=== PATIENT | male | born 1955 | race Caucasian/White ===

== ENCOUNTER 2017-05-03 18:57 | Emergency (ER) | payer OTHER ==
[~2017-05-03] VITALS: Ht 193 cm; Wt 96.8 kg
[2017-05-03 19:01] VITALS: TEMP 36.8; Ht 193 cm; Wt 96.8 kg
[2017-05-03] MEDS ORDERED: XYLOCAINE 1%/SOD BICARB 20 ML VIAL INFIL STA (19:36)
[2017-05-03] MEDS ORDERED: BUPIVACAINE 0.5 % 5 MG/1 ML MPF 30ML VIAL INFIL STA (19:36)
[2017-05-03] MEDS ORDERED: DIPHTHERIA/TETANUS/PERTUSSIS 0.5 ML SYR/VIAL IM. ONE (19:45)
--- NOTE | 2017-05-03 20:37 | DIAGNOSTIC IMAGING REPORT ---
LEFT FINGER(S) MIN 2 VIEWS ROUTINE CLINICAL HISTORY: Left index finger, distal tip caught in pluck trimmer COMPARISON: None FINDINGS: No acute fracture of the left second finger is identified. Alignment is anatomic. There is no radiopaque foreign body. Soft tissue irregularity suggests a laceration of the distal aspect of the second finger. IMPRESSION: No acute fracture or dislocation of the left second finger. Electronically signed by: Anton Barreto M.D. 05/03/2017 8:36 PM Dictated Date/Time: 05/03/2017 8:36 PM
[2017-05-03] MEDS ORDERED: GELATIN SPONGE 12-7MM ONE (21:11)
[2017-05-03] MEDS ORDERED: CEPHALEXIN 500MG HOME PACK 1 EA BTL PO STA (21:22)
[2017-05-03] MEDS ORDERED: CEPH500C PO (21:25)
--- NOTE | 2017-05-03 21:25 | EMERGENCY ROOM VISIT NOTE ---
ED Visit Note First contact with patient: 19:33 Chief Complaint: "Left hand second digit injury". History of Present Illness: This patient is a 61-year-old male who presents to the Emergency Department via private vehicle for evaluation of their left second digit laceration. Patient sustained the laceration while operating a upholstery auto trimmer, when he accidentally struck his finger. They report a moderate amount of bleeding initially. They deny any numbness or tingling into the distal extremity. They report no decreased range of motion of the affected digit. Patient rates his current discomfort as a 6/10. Patient's Tetanus status is not currently up-to-date. Medications: As noted below Allergies: No known allergies PMH: Hernia. SHx: Patient lives at home with , denies tobacco use, admits to alcohol use. ROS: All pertinent positive and negative review of systems are appropriately documented in the History of Present Illness. Physical Exam: VITAL SIGNS - Vital signs and nursing notes were reviewed. Patient is stable. GENERAL -61-year-old male appearing his stated age who is in no acute distress. Communicates well with provider and answers questions appropriately. SKIN - There is a 2.5 cm long laceration noted distal right second digit there are total of small lacerations to equal to 2.5 cm. The edges gape apart with traction. No foreign bodies appreciated. Upon further examination there are no deep structures including vessel, tendon, or bony structures appreciated. There is no active bleeding noted. MUSCULOSKELETAL - Laceration as described above. +5/5 strength appreciated of the affected digit. Full range of motion of the affected digit. NEUROLOGIC - Neurovascularly intact. VASCULAR - Capillary refill was brisk. IMAGING: LEFT FINGER(S) MIN 2 VIEWS ROUTINE CLINICAL HISTORY: Left index finger, distal tip caught in upholstery auto trimmer COMPARISON: None FINDINGS: No acute fracture of the left second finger is identified. Alignment is anatomic. There is no radiopaque foreign body. Soft tissue irregularity suggests a laceration of the distal aspect of the second finger. IMPRESSION: No acute fracture or dislocation of the left second finger. Electronically signed by: Anton Barreto M.D. 05/03/2017 8:36 PM Dictated Date/Time: 05/03/2017 8:36 PM ED Course: Patient was seen and evaluated by myself. Risks and benefits of performing primary wound closure versus no repair were discussed with the patient who verbalizes understanding. Verbal consent was obtained prior to performing the procedure. 8 cc of 50/50 ratio 1% buffered lidocaine and 0.5% bupivacaine was used to perform a digital block of the left second digit. The wound was cleansed and prepped in the typical sterile fashion utilizing normal saline and Betadine. The wound was sterilely draped. Once proper anesthetization was established, the wound was further examined and demonstrated no deep involvement. The wound was copiously irrigated with normal saline and Betadine. The wound was closed using 4 simple, 5-0 nylon sutures with the wound edges being well approximated. Patient tolerated the procedure well. No complications were met. The wound was cleansed and dressed with a Bacitracin dressing. Bleeding did persist at the distal tip, therefore a small amount of Gelfoam was applied. A metal splint was applied to the finger for comfort. Patient received their Adacel vaccination. Patient educated on worrisome symptoms for return visit to the Emergency Department. Patient discharged to home in good condition. Due to the nature of the wound, he'll be prophylaxed with Keflex. In the evaluation and treatment of this patient, the following differential diagnoses were considered: Finger Fracture, Finger Dislocation, Finger Sprain, Finger Contusion, Jersey Finger, or Mallet Finger. Current/Historical Medications Scheduled Cephalexin Monohydrate (Keflex), 500 MG PO TID Allergies Coded Allergies: No Known Allergies (Unverified , 05/03/17) Vital Signs Date Time Temp Pulse Resp B/P (MAP) Pulse Ox O2 Delivery O2 Flow Rate FiO2 05/03/17 21:30 64 16 117/63 99 05/03/17 19:01 36.8 79 18 152/90 97 Room Air Medications Administered Medications (Trade) Dose Ordered Sig/Birdie Route Start Time Stop Time Status Last Admin Dose Admin Diphtheria/ Pertussis/Tetanus Vacc (Adacel Inj) 0.5 ml ONCE ONCE IM. 05/03/17 19:45 05/03/17 19:46 DC 05/03/17 19:44 0.5 ML Departure Information Impression Primary Impression: Laceration Dispostion Home / Self-Care Condition GOOD Prescriptions Cephalexin Monohydrate (Keflex) 500 Mg Cap 500 MG PO TID, #18 CAP Prov: Vasyl Paulino, JOSE R 05/03/17 Referrals No Doctor, Assigned (PCP) Patient Instructions My [facility] Additional Instructions Discharge Instructions: You have received 4 sutures on your finger. These sutures are NOT dissolvable and WILL need to be removed by a health care provider in 12 days. You can return to the Emergency Department or contact your Primary Care Provider to have the sutures removed. Please wear the splint for comfort until the sutures are removed. Leave the GELFOAM and dressing in place for the next 48 hours. Keep the dressing clean and dry until time for removal. To remove the GELFOAM dressing, remove the overlying tape and then soak the wound in warm water until the piece of GELFOAM can be easily removed. Proper wound care is essential for adequate wound healing and infection prevention. You can shower and clean the wound with soap and water. Do not scour over the wound, pat dry with a towel. Do not submerse the wound (i.e. bathe or dish wash) until the sutures have been removed. You can use an antibiotic ointment with a dressing over the wound for the next 3-4 days. After this time you may leave the wound dry and open to the air. If crust develops over the wound you can use a Q-tip to apply a 1:1 peroxide:water solution to clean the wound. You've been prescribed Keflex to help prevent infection. This is 500 mg every 8 hours. Look for signs of infection of the wound including: increased pain, swelling, foul discharge, streaking, or increased temperature. If any of these are noticed you should return to the Emergency Department for further assessment and treatment. As with any laceration you may have received nerve damage to the surrounding tissues. This damage may or may not be permanent. You should keep the area covered with sunscreen for the first 6 months to 1 year when at risk for exposure to help minimize scarring. You can also use scar reducing creams or Vitamin E oil to help minimize scarring. For pain control, you can use the following [id number] medicines (if >12 yo): - Regular strength (325mg/tab) Tylenol (acetaminophen) 2 tabs every 4-6 hours as needed. Do not exceed 12 tablets in a 24 hour period. Avoid taking more than 3 grams (3000 mg) of Tylenol per day. This includes any other sources of acetaminophen you may take on a regular basis. - Regular strength (200 mg/tab) Advil (ibuprofen) 1-2 tabs every 4-6 hours as needed. Do not exceed a dose of 3200 mg per day. Return to the emergency department if your symptoms worsen despite treatment course outlined above.
[2017-05-03 21:30] VITALS: BP 117/63; PULSE 64; O2SAT 99
== END 2017-05-03 21:31 | disposition home or self-care (01) ==
LOC: C.EDB 18:59 → C.EDD 21:31
DX: S61.211A Laceration without foreign body of left index finger without damage to nail, initial encounter (principal); W29.3XXA Contact with powered garden and outdoor hand tools and machinery, initial encounter; Z23 Encounter for immunization

== ENCOUNTER 2017-05-15 17:21 | Emergency (ER) | payer OTHER ==
[~2017-05-15] VITALS: Ht 193 cm; Wt 95.8 kg
[~2017-05-15 17:21] MED LIST: CEPH500C PO
[2017-05-15 17:23] VITALS: BP 140/87; PULSE 72; TEMP 36.9; O2SAT 99; Ht 193 cm; Wt 95.8 kg
--- NOTE | 2017-05-15 17:42 | EMERGENCY ROOM VISIT NOTE ---
ED Visit Note First contact with patient: 17:28 CHIEF COMPLAINT: Removal of sutures HISTORY OF PRESENT ILLNESS: This 61-year-old male patient presents to the emergency department for removal of sutures from their left second finger. The sutures were placed 12 days ago. There have been no signs of infection. The patient denies any pain. REVIEW OF SYSTEMS: A review of systems was performed with positives and pertinent negatives listed in the history of present illness. All other systems were reviewed and are negative. ALLERGIES: No known drug allergies MEDICATIONS: Unchanged from previous visit. PMH: Unchanged from previous visit. SOCIAL HISTORY: The patient lives locally with family. PHYSICAL EXAM: VITALS: Vitals are noted on the nurse's note and reviewed by myself. Vital signs stable. GENERAL: This is a 61-year-old male, in no acute distress, nondiaphoretic, well- developed well-nourished. SKIN: There is a well-healing sutured wound on the left index finger with no signs of infection. EMERGENCY DEPARTMENT COURSE: The patient was evaluated as above. Sutures were removed from the finger with no dehiscence. There is no evidence of infection. Scar reduction measures were discussed the the patient. They verbalized understanding and were discharged home in good condition. DIAGNOSIS: Encounter for suture removal DISCHARGE INSTRUCTIONS & TREATMENT: Wash the remaining crusts off the wound. Keep the wound covered with SPF for the next 6 months to reduce scarring. Once the wound has fully healed, you may apply Vitamin E oil, cocoa butter, or any over the counter scar reducing formulations daily. Current/Historical Medications Scheduled Cephalexin Monohydrate (Keflex), 500 MG PO TID Allergies Coded Allergies: No Known Allergies (Unverified , 05/03/17) Vital Signs Date Time Temp Pulse Resp B/P (MAP) Pulse Ox O2 Delivery O2 Flow Rate FiO2 05/15/17 17:23 36.9 72 18 140/87 99 Room Air Departure Information Impression Primary Impression: Encounter for removal of sutures Dispostion Home / Self-Care Condition GOOD Referrals No Doctor, Assigned (PCP) Patient Instructions My [facility] Additional Instructions Wash the remaining crusts off the wound. Keep the wound covered with SPF for the next 6 months to reduce scarring. Once the wound has fully healed, you may apply Vitamin E oil, cocoa butter, or any over the counter scar reducing formulations daily.
== END 2017-05-15 17:48 | disposition home or self-care (01) ==
LOC: C.EDB 17:22 → C.EDD 17:48
DX: Z48.02 Encounter for removal of sutures (principal)